=== PATIENT | female | born 1990 | race African-American/Black ===

== ENCOUNTER 2020-01-16 14:57 | Inpatient (IN) | payer MEDICAID, SELFPAY ==
[~2020-01-16] VITALS: Ht 154.9 cm; Wt 82.2 kg
[~2020-01-16 14:57] MED LIST: 0.9% SODIUM CHLORIDE 10 ML SYRINGE IVP ONE; EPINEPHrine 1:10,000 [1 MG/10 ML] SYRINGE IVP ONE; SODIUM BICARBONATE [ADULT] 8.4% 50 MEQ/50 ML SYRINGE IVP ONE
[2020-01-16 18:20] LABS: HEMATOCRIT 51.2 % (36-46); HEMOGLOBIN 16.2 g/dL (12.0-16.0); MEAN CORPUSCULAR HEMOGLOBIN 23.1 pg (26.0-34.0); MEAN CORPUSCULAR HGB CONC 31.5 G/dL (31.0-37.0); MEAN CORPUSCULAR VOLUME 73 fL (80-100); RED BLOOD CELL COUNT(AUTO) 7.01 MIL/uL (4.00-5.20); RED CELL DISTRIBUTION WIDTH 15.8 % (11.5-14.5)
[2020-01-16] MEDS ORDERED: SODIUM CHLORIDE 0.9% 2,450 ML IV ONE (18:52)
[2020-01-16] MEDS ORDERED: CefTRIAXone 1 GM/DEXTROSE 50 ML IV ONE (19:00)
[2020-01-16] MEDS ORDERED: VANCOMYCIN HCL 1 GM/D5% WATER 200 ML IV ONE (19:00)
[2020-01-16] MEDS ORDERED: 0.9% SODIUM CHLORIDE 10 ML SYRINGE IVP PRN ×2 (19:00→22:00)
[2020-01-16 19:44] LABS: PLATELET COUNT (AUTO) 158 K/uL (150-450)
[2020-01-16 19:47] LABS: PATHOLOGY REVIEW, DIFF YES
[2020-01-16 19:56] LABS: ALBUMIN 2.2 g/dL (3.4-5.0); ALKALINE PHOSPHATASE 67 U/L (46-116); CALCIUM, TOTAL 8.4 mg/dL (8.8-10.5); CHLORIDE 89 mmol/L (98-107); HCG,QUANTITATIVE < 1 mIU/mL (0-6); LIPASE 35 U/L (73-393); TOTAL PROTEIN, SERUM 7.3 g/dL (6.4-8.2)
[2020-01-16 19:58] LABS: ALANINE AMINOTRANSFERASE 27 U/L (12-78); ANION GAP 6 mmol/L (8-16); ASPARTATE AMINOTRANSFERASE 56 U/L (15-37); BILIRUBIN,TOTAL 0.4 mg/dL (0.1-1.0); CARBON DIOXIDE 27 mmol/L (22-29); CREATININE 0.83 mg/dL (0.60-1.30); GLOMERULAR FILTR. RATE CALC > 60 mL/min (>60); GLUCOSE,RANDOM 131 mg/dL (70-110); POTASSIUM 5.3 mmol/L (3.5-5.1); UREA NITROGEN, BLOOD 17 mg/dL (7-18)
[2020-01-16 19:58] LABS: APPEARANCE,URINE CLOUDY (CLEAR); BILIRUBIN,URINE NEGATIVE (NEGATIVE); GLUCOSE, URINE (UA) NEGATIVE (NEGATIVE); KETONES,URINE NEGATIVE (NEGATIVE); LEUKOCYTE ESTERASE ,URINE SMALL (NEGATIVE); NITRATE,URINE POSITIVE (NEGATIVE); OCCULT BLOOD,URINE NEGATIVE (NEGATIVE); PROTEIN,URINE NEGATIVE (NEGATIVE)
[2020-01-16 20:01] LABS: LACTIC ACID 3.8 mmol/L (0.4-2.0); SODIUM SERUM 122 mmol/L (136-145)
[2020-01-16 20:30] LABS: BACTERIA,URINE Many /HPF (None Seen)
[2020-01-16 20:31] LABS: RBC,URINE 0-2 /HPF (0-2)
[2020-01-16 20:32] LABS: SQUAMOUS EPITHELIAL CELL,UR Moderate /LPF (None Seen)
[2020-01-16] MEDS ORDERED: LORazepam 2 MG/ML VIAL ONE (20:42)
[2020-01-16] MEDS ORDERED: LORazepam 2 MG/ML VIAL IVP ONE ×2 (20:45→21:00)
[2020-01-16] MEDS ORDERED: IOVERSOL 350 MG/ML 100 ML VIAL ONE (20:55)
[2020-01-16] MEDS ORDERED: SODIUM CHLORIDE 0.9% 100 ML ONE (20:55)
[2020-01-16] MEDS ORDERED: HALOPERIDOL LACTATE 5 MG/ML VIAL IVP ONE (21:15)
[2020-01-16] MEDS ORDERED: CEFEPIME HCL 1 GM in DEXTROSE 5%-WATER 50 ML IV ONE (21:15)
[2020-01-16] MEDS ORDERED: ACETAMINOPHEN 325 MG TABLET PO PRN ×2 (22:00)
[2020-01-16] MEDS ORDERED: BISACODYL 10 MG RECTAL RECTAL SUPPOSITORY PR PRN (22:00)
[2020-01-16] MEDS ORDERED: MAGNESIUM HYDROXIDE SUSPENSION 30 ML UDCUP PO PRN (22:00)
[2020-01-16] MEDS ORDERED: SODIUM CHLORIDE 0.9% 1,000 ML IV ONE (22:00)
[2020-01-16] MEDS ORDERED: *CLINICAL-CEFEPIME DOSING CLINICAL ONE (22:00)
[2020-01-16] MEDS ORDERED: ONDANSETRON HCL 4 MG/2 ML VIAL IVP PRN ×2 (22:00)
[2020-01-16] MEDS ORDERED: LORazepam 2 MG/ML VIAL IM PRN (22:00)
[2020-01-16] MEDS ORDERED: HYDROCODONE/ACETAMINOPHEN 5-325 MG TABLET PO PRN (22:00)
[2020-01-16] MEDS ORDERED: ZOLPIDEM TARTRATE 5 MG TABLET PO PRN (22:00)
[2020-01-16] MEDS ORDERED: MORPHINE SULFATE 2 MG/ML SYRINGE IVP PRN (22:00)
[2020-01-16] MEDS ORDERED: VANCOMYCIN HCL 500 MG in DEXTROSE 5%-WATER 100 ML IV ONE (23:00)
[2020-01-17] VITALS (11 sets, daily range): BP systolic 65–157; BP diastolic 30–106
[2020-01-17] MEDS ORDERED: HEPARIN SODIUM,PORCINE 5,000 UNITS/ML VIAL SQ SCH
[2020-01-17] MEDS ORDERED: CEFEPIME HCL 2 GM in DEXTROSE 5%-WATER 50 ML IV SCH (02:00)
[2020-01-17] MEDS ORDERED: PNEUMOCOCCAL VACCINE POLYVALENT 0.5 ML VIAL [PPSV23] IM ONE (02:30)
[2020-01-17] MEDS ORDERED: INFLUENZA VIRUS VACCINE QVS 2019-20 (3YR+)/PF 60 MCG/0.5 ML SYRINGE IM ONE (02:30)
[2020-01-17 06:56] LABS: GLUCOMETER DEV NAME(LOC) 5N.1; GLUCOSE,POINT OF CARE 176 MG/DL (70-110)
[2020-01-17] MEDS ORDERED: VANCOMYCIN HCL 1.25 GM in DEXTROSE 5%-WATER 250 ML IV SCH (08:00)
[2020-01-17] MEDS ORDERED: DOCUSATE SODIUM 100 MG CAPSULE PO SCH (09:00)
[2020-01-17] MEDS ORDERED: PANTOPRAZOLE SODIUM 40 MG DR TABLET PO SCH (09:00)
[2020-01-17 10:31] LABS: BAND NEUTROPHILS % (MANUAL) 30 % (0-5); LYMPHOCYTES % (MANUAL) 9 % (22-44); SEGMENTED NEUTROPHILS % 47 % (40-70)
[2020-01-17 10:32] LABS: BASOPHILS % (MANUAL) 1 % (0-2); BLASTS, MANUAL % 2 (0-0); EOSINOPHILS % (MANUAL) 0 % (1-6); METAMYELOCYTES % 4 % (0-0); MONOCYTES % (MANUAL) 3 % (2-9); MYELOCYTES % 2 % (0-0); PROMYELOCYTES % 0 (0-0); REACTIVE LYMPHOCYTES 2 % (0-0)
== END 2020-01-17 04:00 | disposition expired | DRG 872 ==
LOC: EMS 14:58 → 5N 23:00
PROVIDERS: ADMIT Internal Medicine; ATTEND Internal Medicine
DX: A41.9 Sepsis, unspecified organism (principal); E87.1 Hypo-osmolality and hyponatremia; L02.31 Cutaneous abscess of buttock; L03.317 Cellulitis of buttock; L03.115 Cellulitis of right lower limb; L03.116 Cellulitis of left lower limb; R65.20 Severe sepsis without septic shock; F19.10 Other psychoactive substance abuse, uncomplicated; F17.210 Nicotine dependence, cigarettes, uncomplicated; F11.90 Opioid use, unspecified, uncomplicated; J45.909 Unspecified asthma, uncomplicated; E87.5 Hyperkalemia; I46.9 Cardiac arrest, cause unspecified; Z88.0 Allergy status to penicillin; Z59.0 Homelessness
CPT/HCPCS: 73701; 74176; 74177; 83605; 84145; 87040; 87086; 92950; J0171; J0692; J0696; J1630; J1644; J2060; J3370; J3490; J7030; J7050; J7060